=== PATIENT | male | born 1960 | race Caucasian/White ===

== ENCOUNTER → 2017-11-20 | Outpatient (CLI) | payer OTHER ==
--- NOTE | 2017-11-20 15:10 | US ---
EXAM DESCRIPTION: Liver: ULTRASOUND. CLINICAL HISTORY: NONSPECIFIC ELEVATION OF LEVELS OF TRANSAMINASE AND LDH COMPARISON: CT lung screening on this visit. TECHNIQUE: Transabdominal scannin-dimensional and Doppler modes. FINDINGS: Gallbladder: normal size, shape, echogenicity; no intraluminal stones or sludge. No fluid around the gallbladder. No wall thickening. 2.0 mm. Non-tender with transducer pressure. Common bile duct: caliber 8.9 mm dilated. Liver: Increased echogenicity; contour liver capsule smooth where seen. No fluid around the liver. Intrahepatic biliary ducts normal caliber. Doppler hepatopedal flow portal vein.. Long axis right lobe 13.3 Pancreas: Partially obscured by intestinal gas, normal echogenicity where seen. Duct not seen. Right kidney: long axis measures 10.1 cm. Normal Echogenicity. Normal cortical thickness. No hydronephrosis IMPRESSION: 1. Significantly dilated common bile duct. Normal ultrasound of the gallbladder with no tenderness. Fatty liver but normal size. No intrahepatic biliary dilatation. Normal vascularity. Smooth capsule. No ascites. 2. Pancreas partially obscured by intestinal gas but normal where seen. Normal ultrasound of the right kidney. Electronically signed by: Joey Pagan MD 11/20/2017 3:09 PM CDT
== END ==
LOC: US 11:00
PROVIDERS: ATTEND Family Medicine
DX: R74.0 Nonspecific elevation of levels of transaminase and lactic acid dehydrogenase [LDH] (principal); R63.4 Abnormal weight loss; K76.0 Fatty (change of) liver, not elsewhere classified

== ENCOUNTER → 2017-11-20 | Outpatient (CLI) | payer OTHER ==
--- NOTE | 2017-11-20 16:04 | CT ---
PROCEDURE: CT LUNG CANCER SCREENING CLINICAL HISTORY: Screening visit . Coughing, afebrile. Lung cancer screening, COMPARISON: Ultrasound liver on the same visit. TECHNIQUE: kVp: unknown. mA: unknown DLP: 72.96 mGy-centimeters. CTDI 1.76 mGy. FINDINGS: Exam parameters: Diagnostic quality: Satisfactory Comments: None. Lung nodules: Present, detailed below. Nodule #1: : Right 5 mm, solid, unchanged. Minimal lobulation of the borders. Image # 83 Lungs: COPD: Mild Fibrosis: Mild right lung base. Lymph nodes: Small. Other findings: None. Right pleural space: Effusion: None. Calcifications: Linear abutting the superior segment of the right lower lobe on image 59 Thickening: Mild apex. Pneumothorax: None. Blebs and bulla. Left pleural space: Effusion: None. Calcifications: None. Thickening: Mild apex and lateral major fissure superior. None. Pneumothorax: None. Blebs and bulla Heart: Heart size: Normal Coronary calcification: Moderate. Atherosclerotic calcification of the thoracic aorta. Pericardial effusion: None Other findings: Upper abdomen: Atherosclerotic calcifications of the aorta. Thorax: Spondylosis of the spine and several levels. Base of neck: None. Impression: 5 mm (mean diameter) soft tissue nodule with minimal lobulation, which may be abutting the basal fissure of the superior segment of the right lower lobe. Pleural calcification processes posterior rib exostosis abutting the superior segment of the right lower lobe. Correlate for asbestos pneumoconiosis exposure. Bilateral apical pleural thickening. Mild to moderate emphysematous changes in the parenchyma and pleura. LUNG RADS: Category 2: BENIGN APPEARANCE or behavior. Nodules with a very low likelihood of becoming a clinically active cancer due to size or lack of growth. Findings include solid nodules < 6 mm or new nodule < 4 mm. Part solid nodule(s) < 6 mm total diameter on baseline screening (which is the average of all three dimensions). Non-solid groundglass nodule(s) < 20 mm or >= 20 mm and unchanged or slowly growing. Category three or four nodules that are unchanged for >= 3 months. MANAGEMENT: Continue annual screening with low dose CT in 12 months. Modifier: None. Electronically signed by: Joey Pagan MD 11/20/2017 4:02 PM CDT
== END ==
LOC: CT 11:30
PROVIDERS: ATTEND Family Medicine
DX: Z87.891 Personal history of nicotine dependence (principal)

== ENCOUNTER → 2018-01-21 | Outpatient (CLI) | payer OTHER | LOC: LAB.O 11:30 | PROVIDERS: ATTEND Internal Medicine Gastroenterology | DX: R93.2 Abnormal findings on diagnostic imaging of liver and biliary tract (principal); R74.0 Nonspecific elevation of levels of transaminase and lactic acid dehydrogenase [LDH] ==

== ENCOUNTER → 2018-01-27 | Outpatient (CLI) | payer OTHER ==
--- NOTE | 2018-01-27 14:27 | MRI ---
EXAM DESCRIPTION: Abdomen w/wo Contrast CLINICAL HISTORY: 57 years Male, ABNORMAL IMAGING OF LIVER AND BILIARY TRACT COMPARISON: Ultrasound of the liver dated 11/20/2017. TECHNIQUE: Multiplanar multiecho imaging of the abdomen was performed with and without gadolinium administration. FINDINGS: The visualized lower thorax appears normal. The liver demonstrates diffuse fatty infiltration. No focal masses are identified. The gallbladder appears grossly unremarkable. There is mild prominence of the extrahepatic biliary system measuring up to 7.4 mm. However no evidence of choledocholithiasis or obstructive lesion. The pancreas and spleen appear normal. Bilateral adrenal glands demonstrate no gross abnormality. Few simple cysts are noted in the left kidney. There is prominence of the bilateral extrarenal pelvises slightly worse on the left side. This is most likely secondary to reflux from a significantly distended urinary bladder. The visualized bowel loops and spine appear normal. IMPRESSION: 1. Hepatic steatosis. 2. Mild prominence of the extrahepatic bile duct measuring up to 7.4 mm. No evidence of choledocholithiasis or obstructive lesion. 3. Significantly distended urinary bladder with reflux into the bilateral renal collecting systems. Electronically signed by: Payton Amador MD 01/27/2018 2:26 PM CDT
== END ==
LOC: MRI 10:13
PROVIDERS: ATTEND Internal Medicine Gastroenterology
DX: R93.2 Abnormal findings on diagnostic imaging of liver and biliary tract (principal); K76.0 Fatty (change of) liver, not elsewhere classified

== ENCOUNTER → 2018-10-14 | Outpatient (CLI) | payer OTHER | LOC: LAB.O 12:36 | PROVIDERS: ATTEND Internal Medicine Gastroenterology | DX: R94.5 Abnormal results of liver function studies (principal) ==

== ENCOUNTER → 2018-12-29 | Outpatient (CLI) | payer OTHER ==
--- NOTE | 2018-12-29 20:26 | CT ---
Procedure: CT LUNG SCREENING Exam Date: 12/29/2018. Ordering Provider: Jesús Griggs Clinical Indication: PERSONAL HISTORY OF TOBACCO USE . Current cigarette smoker. 50 pack year history. This patient meets eligibility criteria for low-dose CT lung cancer screening. Comparison: Low-dose CT chest for lung cancer screening 11/20/2017. Technique: Using a multislice scanner, sequential helical axial imaging was obtained in the thorax, 2.5 mm thickness, 2.5 mm separation, from the level of the thoracic inlet through the lung bases without IV contrast. A low dose protocol was utilized for BMI less than 30: BMI: 18.4. CTDI: 1.76 mGy. 120. kVp. 45 mA. DLP 70.51 mGy-centimeters. 2D sagittal and coronal reconstructed images, 6.0 mm thickness, were obtained. This exam was performed according to our departmental dose optimization program which includes use of automated exposure control, adjustment of the mA and/or kV according to patient size and/or use of iterative reconstruction technique. Nodule measurements under 10 mm are given as mean value of 3 axes diameters. FINDINGS: Lungs and large airways: 4.5 mm solid nodule in the superior segment of the right lower lobe and may be associated with an intersegmental fissure, on image 2/80. Stable since the prior study. Posterior parenchymal dilated airspaces in the superior segment of the right lower lobe are stable. No new abnormal nodules bilaterally. No mass or focal infiltrate. Pleura and space: Stable pleural calcification abutting the posterior aspect of the superior segment of the right lower lobe. Bilateral apical pleural thickening and bilateral focal pleural thickening with no effusion or pneumothorax. Mediastinum and rodolfo: evaluation limited by low dose technique and lack of IV contrast. Small nodes in the anterior and middle mediastinum stable with no new dominant solid masses. Heart and great vessels: Again seen are coronary artery calcifications and stents as well as atherosclerotic calcifications in the brachiocephalic vessels and aortic arch and thoracic aorta with ectasia of the ascending aortic arch. Chest wall, lower neck, axillae: Evaluation also limited by same factors as described above. Calcified right axillary nodes stable and no change in the nodes on the left. Upper abdomen: Evaluation limited by low-dose technique. No free fluid or free air in the included peritoneal space. Osseous structures: Evaluation limited by low dose MIP technique. Spondylosis in the thoracic spine. No lytic or blastic lesions. IMPRESSION: Stable solid nodule superior segment right lower lobe which may be associated with a intersegmental fissure. Stable pleural thickening and emphysematous changes. [facility] Best Practice recommendations:. Please see below for Lung RADS category and FOLLOW-UP.* *Lung RADS CATEGORY 2- Nodules with a very low likelihood (less than 1%) of becoming a clinically active cancer due to size or lack of growth. Nodules: Perifissural nodule(s) < 10 mm. (526mm3). Solid or part solid nodule(s) less than 6mm (113.1 mm3), new solid nodule less than 4mm (33.5 mm3). Ground glass nodule(s) less than 30mm (38755.2 mm3) or unchanged or slow growing ground glass nodule 30mm or greater. Cat 3 or 4 nodule unchanged for 3 or more months. FOLLOW-UP: Continue annual screening with a Low Dose Chest CT in 12 months for re-evaluation. Electronically signed by: Joey Pagan MD 12/29/2018 8:25 PM CDT
== END ==
LOC: CT 10:00
PROVIDERS: ATTEND Family Medicine
DX: Z87.891 Personal history of nicotine dependence (principal); R91.1 Solitary pulmonary nodule

== ENCOUNTER → 2019-01-13 | Outpatient (CLI) | payer OTHER ==
--- NOTE | 2019-01-14 11:42 | US ---
EXAM DESCRIPTION: Aorta: Ultrasound. CLINICAL HISTORY: ENCOUNTER FOR SCREENING FOR OTHER DISORDER COMPARISON: MRI scan of the abdomen 01/27/2018. TECHNIQUE: Transcutaneous scanning: Two-dimensional and Doppler modes. FINDINGS: Abdominal aorta diameter - Proximal: 2.4 x 1.9 cm. Mid: 2.2 x 2.1 cm. Distal: 1.7 x 1.4 cm. Common Iliac diameter - Right: 8 mm. Left: 8 mm. Other: Minimal atherosclerotic calcifications proximal.. IMPRESSION: No abdominal aortic aneurysm. Electronically signed by: Joey Pagan MD 01/14/2019 11:40 AM CDT
== END ==
LOC: CT 11:19
PROVIDERS: ATTEND Family Medicine
DX: Z13.89 Encounter for screening for other disorder (principal)

== ENCOUNTER → 2020-06-21 | Outpatient (CLI) | payer OTHER ==
--- NOTE | 2020-06-22 11:38 | CT ---
Procedure: CT LUNG SCREENING Exam Date: June 21, 2020 Ordering Provider: Jesús Griggs Clinical Indication: screening . Cigarette smoker. 50 pack years. This patient meets eligibility criteria for low-dose CT lung cancer screening. Comparison: Low-dose CT lung cancer screening examinations of December 2018 and November 2017 Technique: Using a multislice scanner, sequential helical axial imaging was obtained in the thorax, 2.5 mm thickness, 2.5 mm separation, from the level of the thoracic inlet through the lung bases without IV contrast. A low dose protocol was utilized for BMI less than 30: BMI: 19.0.. CTDI: 1.76 mGy. 120. kVp. 45 mA. DLP 76 mGy-cm. 2D sagittal and coronal reconstructed images, 6.0 mm thickness, were obtained. This exam was performed according to our departmental dose optimization program which includes use of automated exposure control, adjustment of the mA and/or kV according to patient size and/or use of iterative reconstruction technique. Nodule measurements under 10 mm are given as mean value of 3 axes diameters. FINDINGS: Lungs and large airways: Nodule solid and approximately 4 mm diameter associated with a partial fissure laterally, between the superior segment right lower lobe and the basilar segments, on axial series 2, image 79. Stable since the prior study. Bilateral small bulla predominantly upper lung kraft. Occasional subpleural blebs. Largest in the bilateral apices. Pleural-parenchymal scarring right middle lobe and inferior lingula. Subpleural/pleural scarring superior segment right lower lobe stable. Scarring stable in the medial aspect of the posterior recess of the right lower hemithorax. Stable 3 mm groundglass nodule posterior subpleural superior segment left lower lobe image 2/ Pleura and space: No acute process. No calcifications. Mediastinum and rodolfo: evaluation limited by low dose technique and lack of IV contrast. Small lymph nodes but no dominant soft tissue masses. Stable since the prior study. Heart and great vessels: Atherosclerotic calcifications in the coronary arteries and aortic arch, and several brachiocephalic vessels. Also descending thoracic aorta. Stable since the prior study Chest wall, lower neck, axillae: Evaluation also limited by same factors as described above. No enlarged axillary or subclavian nodes, and several nodes contain calcifications. No interval change. Upper abdomen: Evaluation limited by low-dose technique. No free air or free fluid. Normal density and size. The urinary glands. Gallbladder visualized. Minimal atrophy in the left kidney. Osseous structures: Evaluation limited by low dose MIP technique. Minimal arthrosis. Minimal spondylosis in the included thoracic spine. IMPRESSION: 1. Minimal emphysematous changes. Stable perifissural nodule. Stable groundglass nodule. All nodules less than 4 mm diameter no new abnormal nodules. No mass. No acute infiltrate. [facility] Best Practice Recommendations: please see below for Lung RADS category and FOLLOW-UP.* *Lung RADS category Category 1 - No nodule or definitely benign nodules (probability of malignancy less than 1%). Follow-up: Continue annual screening with Low Dose Chest CT in 12 months. Electronically signed by: Joey Pagan MD 06/22/2020 11:37 AM [facility]
== END ==
LOC: CT 11:02
PROVIDERS: ATTEND Family Medicine
DX: F17.200 Nicotine dependence, unspecified, uncomplicated (principal); J43.9 Emphysema, unspecified; R91.8 Other nonspecific abnormal finding of lung field; Z12.2 Encounter for screening for malignant neoplasm of respiratory organs